=== PATIENT | female | born 1990 | race Caucasian/White ===

== ENCOUNTER 2024-12-20 12:37 | Emergency (ER) | payer OTHER ==
[~2024-12-20] VITALS: Ht 152.4 cm; Wt 61.0 kg
[2024-12-20 12:44] VITALS: O2SAT 100
[2024-12-20] MEDS: CYCLOBENZAPRINE 10MG TABLET PO ONE (14:49)
[2024-12-20] MEDS: KETOROLAC 30MG/ML VIAL IM ONE (14:49)
[2024-12-20] MEDS: LIDOCAINE 5% PATCH TOP STA (14:49)
[2024-12-20] MEDS ORDERED: IBUP-2030 MT (15:13)
[2024-12-20] MEDS ORDERED: KETO10TA2 MT (15:13)
[2024-12-20] MEDS ORDERED: LIDO700A30 TP (15:13)
[2024-12-20] MEDS ORDERED: CYCL10TA21 MT (15:13)
[2024-12-20 15:22] VITALS: BP 108/76; PULSE 82; RESP 16; TEMP 36.7; O2SAT 100
== END 2024-12-20 15:23 | disposition home or self-care (01) ==
LOC: ER 12:37
DX: G89.29 Other chronic pain (principal); M54.50 Low back pain, unspecified; Z79.899 Other long term (current) drug therapy
CPT/HCPCS: 99283; 81025; 96372; J1885